=== PATIENT | male | born 1960 | race African-American/Black ===

== ENCOUNTER 2017-09-19 19:56 | Emergency (ER) | payer MEDICARE, OTHER ==
[~2017-09-19] VITALS: Ht 167.6 cm; Wt 102.1 kg
[2017-09-19 20:09] VITALS: BP 159/77
--- NOTE | 2017-09-19 20:17 | PHYS DOC ---
Adult General Chief Complaint Chief Complaint: SORE THROAT HPI HPI Patient is a 57 year old male who presents with a sore throat. The patient was at dinner this evening was a peppers and bit into a [place]. There was a toothpick embedded in the [place] that went into his mouth hitting the back of his throat. He was able to get the toothpick out but does have pain in his throat and would like to have it examined. Review of Systems Review of Systems Constitutional: Denies fever or chills [] Eyes: Denies change in visual acuity, redness, or eye pain [] HENT: See history of present illness Respiratory: Denies cough or shortness of breath [] Cardiovascular: No additional information not addressed in HPI [] Neurologic: Denies headache, focal weakness or sensory changes [] Endocrine: Denies polyuria or polydipsia [] All other systems were reviewed and found to be within normal limits, except as documented in this note. Allergies Allergies Allergies Coded Allergies Type Severity Reaction Last Updated Verified No Known Drug Allergies 09/19/17 No Physical Exam Physical Exam Constitutional: Well developed, well nourished, no acute distress, non-toxic appearance. [] HENT: Normocephalic, atraumatic, bilateral external ears normal, oropharynx moist with erythema noted to the left back throat, there is no laceration or bleeding occurring, no oral exudates, nose normal. [] Eyes: PERRLA, EOMI, conjunctiva normal, no discharge. [] Neck: Normal range of motion, no tenderness, supple, no stridor. [] Cardiovascular:Heart rate regular rhythm, no murmur [] Lungs & Thorax: Bilateral breath sounds clear to auscultation [] Neurologic: Alert and oriented X 3, normal motor function, normal sensory function, no focal deficits noted. [] Psychologic: Affect normal, judgement normal, mood normal. [] EKG EKG [] Radiology/Procedures Radiology/Procedures [] Course & Med Decision Making Course & Med Decision Making Pertinent Labs and Imaging studies reviewed. (See chart for details) []1. Foreign body to throat 2. Sore throat Use salt water gargles. Please call your primary care physician if the pain does not resolve in 2-3 days. If worsening U will need referral to a GI specialist to scope your throat. Please return to the ED immediately if worsening or if you're unable to swallow your own secretions. Dragon Disclaimer Dragon Disclaimer This electronic medical record was generated, in whole or in part, using a voice recognition dictation system. Departure Departure Impression: Primary Impression: Sensation of foreign body in throat Disposition: 01 HOME, SELF-CARE Condition: STABLE Patient Instructions: Foreign Body, Sore Throat, [id number] Additional Instructions: If symptoms worsen please contact your PCP for referral to a GI specialist or return to the ED immediately. CHUCKY DUARTE [employer] Sep 19, 2017 20:17
== END 2017-09-19 20:16 | disposition home or self-care (01) ==
LOC: ER 19:56
DX: J02.9 Acute pharyngitis, unspecified (principal); R09.89 Other specified symptoms and signs involving the circulatory and respiratory systems
CPT/HCPCS: 99281

== ENCOUNTER 2017-09-20 11:46 | Emergency (ER) | payer SELFPAY ==
[2017-09-19 20:09] VITALS: BP 159/77
[~2017-09-20] VITALS: Ht 168.9 cm; Wt 102.1 kg
--- NOTE | 2017-09-20 12:33 | PHYS DOC ---
Past Medical History Past Medical History: Arthritis, Hypertension Past Surgical History: Other Additional Past Surgical Histo: HARDWARE LLE, BILATERAL HAND SX Alcohol Use: Occasionally Drug Use: None Adult General Chief Complaint Chief Complaint: OTHER COMPLAINTS [facility] HPI Patient is a 57 year old male who presents with mild pain in his throat after swallowing a broken toothpick that he was eating from a taco last night; reports that he was able to spit up the toothpick both bases intact immediately afterwards. He was seen in the ED last night he reports persistent pain and irritation. No fever I: Denies inability to swallow secretions or speak normally or eat. Review of Systems Review of Systems Constitutional: Denies fever or chills [] Eyes: Denies change in visual acuity, redness, or eye pain [] HENT: Denies nasal congestion or sore throat [] Respiratory: Denies cough or shortness of breath [] Cardiovascular: No additional information not addressed in HPI [] GI: Denies abdominal pain, nausea, vomiting, bloody stools or diarrhea [] : Denies dysuria or hematuria [] Musculoskeletal: Denies back pain or joint pain [] Integument: Denies rash or skin lesions [] Neurologic: Denies headache, focal weakness or sensory changes [] Endocrine: Denies polyuria or polydipsia [] All other systems were reviewed and found to be within normal limits, except as documented in this note. Allergies Allergies Allergies Coded Allergies Type Severity Reaction Last Updated Verified No Known Drug Allergies 09/19/17 No Physical Exam Physical Exam Constitutional: Well developed, well nourished, no acute distress, non-toxic appearance. [] HENT: Normocephalic, atraumatic, bilateral external ears normal, oropharynx moist, no oral exudates, nose normal. Posterior pharynx appears normal no swelling of the Peritonsillar region [] Eyes: PERRLA, EOMI, conjunctiva normal, no discharge. [] Neck: Normal range of motion, no tenderness, supple, no stridor. No cervical lymphadenopathy, no swelling, trachea midline.[] Cardiovascular:Heart rate regular rhythm, no murmur [] Lungs & Thorax: Bilateral breath sounds clear to auscultation [] Abdomen: Bowel sounds normal, soft, no tenderness, no masses, no pulsatile masses. [] Skin: Warm, dry, no erythema, no rash. [] Back: No tenderness, no CVA tenderness. [] Extremities: No tenderness, no cyanosis, no clubbing, ROM intact, no edema. [] Neurologic: Alert and oriented X 3, normal motor function, normal sensory function, no focal deficits noted. [] Psychologic: Affect normal, judgement normal, mood normal. [] Current Patient Data Vital Signs Vital Signs Date Time Temp Pulse Resp B/P (MAP) Pulse Ox O2 Delivery O2 Flow Rate FiO2 09/20/17 12:40 16 99 09/20/17 11:56 98.6 86 187/119 (141) Room Air 98.6 EKG EKG [] Radiology/Procedures Radiology/Procedures [] Course & Med Decision Making Course & Med Decision Making Pertinent Labs and Imaging studies reviewed. (See chart for details) Patient has no secondary signs of infection or swelling. Fact the patient has persistent pain is to be completely expected is no indication for emergent admission consultation with ENT or advanced imaging at this moment in time. Patient showed me a picture on cell phone of the toothpick pieces that were intact and whole as he described. Recommended for further concerns he may make an appointment to see a local ENT to be evaluated in the office. I've given him return precautions regarding fever increased swelling or inability to speak or swallow food or secretions. Recommend symptomatic treatment with Chloraseptic [place].[] Dragon Disclaimer Dragon Disclaimer This electronic medical record was generated, in whole or in part, using a voice recognition dictation system. Departure Departure Impression: Primary Impression: Abrasion of throat Additional Impression: Swallowed foreign body Disposition: 01 HOME, SELF-CARE Condition: STABLE Referrals: ARAM MORELAND Jr, MD (PCP) Patient Instructions: Sore Throat, [id number] Additional Instructions: follow up with ENT Dr Mandy Hernandez if pain persists Problem Qualifiers DANNY CHUNG MD Sep 20, 2017 12:33
== END 2017-09-20 12:41 | disposition home or self-care (01) ==
LOC: ER 11:46
DX: S10.11XA Abrasion of throat, initial encounter (principal); X58.XXXA Exposure to other specified factors, initial encounter; Y93.89 Activity, other specified; I10 Essential (primary) hypertension; T18.8XXA Foreign body in other parts of alimentary tract, initial encounter; Y99.8 Other external cause status; Y92.89 Other specified places as the place of occurrence of the external cause
CPT/HCPCS: 99281

== ENCOUNTER 2018-12-04 19:25 | Emergency (ER) | payer OTHER ==
[~2018-12-04] VITALS: Ht 167.6 cm; Wt 102.1 kg
[2018-12-04 19:41] VITALS: BP 138/77
--- NOTE | 2018-12-04 19:49 | PHYS DOC ---
Past Medical History Past Medical History: Arthritis, Hypertension Past Surgical History: Other Additional Past Surgical Histo: HARDWARE LLE, BILATERAL HAND SX Alcohol Use: Occasionally Drug Use: None Adult General Chief Complaint Chief Complaint: WOUND CHECK HPI HPI Patient is a 58 year old male who presents to the ED for dressing change. Patient states he had tumors removed from his back earlier today, he states he was instructed to change the dressing if it gets soaked. He states he feels the dressing is wet, unfortunately cannot see his back neither can he change his own dressing on his back. He states he does not have any family or friends to help him either. Review of Systems Review of Systems Constitutional: Denies fever or chills [] Musculoskeletal: Denies back pain or joint pain [] Integument: Dressing change to the back Neurologic: Denies headache, focal weakness or sensory changes [] All other systems were reviewed and found to be within normal limits, except as documented in this note. Allergies Allergies Allergies Coded Allergies Type Severity Reaction Last Updated Verified No Known Drug Allergies 09/19/17 No Physical Exam Physical Exam Constitutional: Well developed, well nourished, no acute distress, non-toxic appearance. [] Skin: Right upper back with a well approximated laceration with Steri-Strips. Minimal serosanguineous bleeding noted on the dressing. Left mid back with a well approximated laceration site with Steri-Strips. Mild serosanguineous bleeding noted on the dressing. Back: No tenderness, no CVA tenderness. [] Extremities: No tenderness, no cyanosis, no clubbing, ROM intact, no edema. [] Neurologic: Alert and oriented X 3, normal motor function, normal sensory function, no focal deficits noted. [] Psychologic: Affect normal, judgement normal, mood normal. [] Current Patient Data Vital Signs Vital Signs Date Time Temp Pulse Resp B/P (MAP) Pulse Ox O2 Delivery O2 Flow Rate FiO2 12/04/18 19:41 98.0 106 18 138/77 (97) 95 Room Air 98.0 EKG EKG [] Radiology/Procedures Radiology/Procedures [] Course & Med Decision Making Course & Med Decision Making Pertinent Labs and Imaging studies reviewed. (See chart for details) This is a 58-year-old male patient presented to the ED today for dressing changes. He had tumors removed from his back unfortunately he cannot access the area to change his own dressings. Both dressing were changed he was discharged to home Dragon Disclaimer Dragon Disclaimer This electronic medical record was generated, in whole or in part, using a voice recognition dictation system. Departure Departure Impression: Primary Impression: Dressing change Disposition: HOME, SELF-CARE Condition: STABLE Referrals: CODY MONTANO MD (PCP) LOI CARR MD follow up as scheduled Patient Instructions: Dressing Change, [id number] Additional Instructions: We changed dressing to your back. Follow-up with the general surgeon as scheduled. SUNIL JORDAN APRN Dec 04, 2018 19:49
== END 2018-12-04 20:00 | disposition home or self-care (01) ==
LOC: ER 19:25
DX: Z48.01 Encounter for change or removal of surgical wound dressing (principal); M19.90 Unspecified osteoarthritis, unspecified site; I10 Essential (primary) hypertension
CPT/HCPCS: 99281; 99282

== ENCOUNTER → 2019-08-12 | Outpatient (CLI) | payer OTHER ==
--- NOTE | 2019-08-12 15:18 | RAD ---
EXAM: Bilateral knees, standing view. HISTORY: Pain. COMPARISON: None. FINDINGS: Frontal standing views of both knees are obtained. There is internal fixation of the left tibia. There is no acute fracture, dislocation or subluxation. There is no significant genu varus or valgus. IMPRESSION: No acute osseous finding. Electronically signed by: Selene Timmons MD (08/12/2019 3:15 PM) [id number]
== END | disposition home or self-care (01) ==
LOC: RAD 14:42
PROVIDERS: ATTEND Physical Medicine & Rehabilitation
DX: M17.0 Bilateral primary osteoarthritis of knee (principal); Z98.890 Other specified postprocedural states
CPT/HCPCS: 73565